=== PATIENT | female | born 1990 ===

== ENCOUNTER 2016-11-28 16:57 | Emergency (ER) | payer MEDICAID ==
[~2016-11-28] VITALS: Ht 167.6 cm; Wt 77.1 kg
[2016-11-28] MEDS ORDERED: SODIUM CHLORIDE 0.9% 1,000 ML IV ONE (17:27)
[2016-11-28] MEDS ORDERED: ONDANSETRON HCL 4 MG/2 ML VIAL IV ONE (17:30)
[2016-11-28 18:38] LABS: Basophils # (auto) 0 uL; Eosinophils # (auto) 0 uL; Eosinophils % (auto) 0.2 % (0.0-7.0); Hematocrit 45.3 % (36.0-46.0); Lymphocytes # (auto) 1.5 uL; Lymphocytes % (auto) 7.3 % (10.0-50.0); Mean Corpuscular Hemoglobin 28.3 pg (28.0-32.0); Mean Corpuscular Hgb Conc. 33.1 g/dL (32.0-36.0); Mean Corpuscular Volume 85.4 fL (80.0-100.0); Mean Platelet Volume 10.4 fL (7.4-10.4); Monocytes # (auto) 0.6 uL; Monocytes % (auto) 2.9 % (0.0-12.0); Neutrophils # (auto) 18.5 uL; Neutrophils % (auto) 89.6 % (37.0-80.0); Platelet Count (auto) 298 10^3/uL (140-450); Red Cell Distribution Width 13.5 % (11.6-16.0); SUSPECT VIEW TRANSMISSION; White Blood Cell 20.6 10^3/uL (4.4-10.8)
[2016-11-28 18:55] LABS: Albumin 4.3 g/dL (3.4-5.0); BUN/Creatinine Ratio 18.1; Bilirubin, Total 0.4 mg/dL (0.2-1.0); Potassium 3.6 mmol/L (3.5-5.1); Total Protein 8.2 g/dL (6.4-8.2)
[2016-11-28 19:20] LABS: Urine Bilirubin Negative (Negative); Urine Color Yellow (Yellow); Urine Glucose Normal (Normal); Urine Ketone Negative (Negative); Urine Mucus FEW (None Seen); Urine Nitrite Negative (Negative); Urine RBC <1 /hpf (0 - 4); Urine Squamous Epithelial Cell FEW /hpf (<5); Urine Urobilinogen Normal (Negative)
[2016-11-28 19:21] LABS: Urine Blood 1+ /uL (Negative)
[2016-11-28 19:35] VITALS: BP 113/67
== END 2016-11-28 19:51 | disposition home or self-care (01) ==
LOC: ER 16:57 → EDBD 16:57 → ER 19:51
DX: G44.209 Tension-type headache, unspecified, not intractable (principal); R11.2 Nausea with vomiting, unspecified; R42 Dizziness and giddiness
CPT/HCPCS: 36415; 70450; 80053; 81001; 84702; 85025; 94761; 96361; 96374; 99285; J2405; J7030